=== PATIENT | female | born 1985 | race Caucasian/White ===

== ENCOUNTER 2017-03-14 00:46 | Emergency (ER) | payer OTHER ==
--- NOTE | ~2017-03-14 | CT4 ---
[facility] A Service [facility] RADIOLOGY TEXT RESULTS PATIENT: HEATHER FOSS LOCATION: SED : 85 UNIT #: [id number] AGE: [address]: Beatrice Uriostegui MD SEX: F ORDER DR: [id number] [address] [address] [id number] E MR#: [id number] Acc #: [id number] NAME: HEATHER FOSS. : 1985 SEX: F STUDY DATE/TIME: 03/14/2017 2:49 UNIT: SED ROOM: STUDY DESCRIPTION: CT Abd and Pelv Wo Cont Attending Physician: Beatrice Uriostegui M.D. Ordering Physician: Beatrice Uriostegui M.D. MEDICAL IMAGING REPORT This report is preliminary unless electronic signature is present. EXAM CT abdomen and pelvis, without contrast HISTORY Fall from standing position at [facility]; now has lower back pain. TECHNIQUE Axial 5-mm images were obtained of the abdomen and pelvis without IV or oral contrast. This CT exam was performed with one or more of the following radiation dose reduction techniques: automatic exposure control, adjustment of mA and/or kV according to patient size, and iterative reconstruction. FINDINGS The lung bases are clear. The liver, spleen, pancreas, adrenal glands, and kidneys are normal. The gallbladder has been removed. The aorta is normal in size. There is no adenopathy. The bowel is normal. The uterus has been removed. The ovaries are normal. There are no fractures present. IMPRESSION 1. No bony fractures are identified. 2. Previous cholecystectomy. 3. Previous hysterectomy. 4. Otherwise, normal. Dictated by... Andres Ag M.D. [facility] A Service [facility] RADIOLOGY TEXT RESULTS PATIENT: HEATHER FOSS LOCATION: SED : 85 UNIT #: [id number] AGE: [address]: Beatrice Uriostegui MD SEX: F ORDER DR: THIS IS AN ELECTRONICALLY VERIFIED REPORT Andres Ag M.D. at 03/14/2017 9:09 PM Gayathri TD: 03/14/2017 13:43 JOB #: [id number] MEDICAL IMAGING REPORT Page 1 of 1
--- NOTE | ~2017-03-14 | CR172 ---
[facility]. [facility] A Service of [facility] RADIOLOGY TEXT RESULTS PATIENT: HEATHER FOSS LOCATION: SED : 85 UNIT #: [id number] AGE: [address]: Beatrice Uriostegui MD SEX: F ORDER DR: [id number] [address] [address] [id number] E MR#: [id number] Acc #: [id number] NAME: HEATHER FOSS. : 1985 SEX: F STUDY DATE/TIME: 03/14/2017 2:51 UNIT: SED ROOM: STUDY DESCRIPTION: CR Knee 3 Views Lt Attending Physician: Beatrice Uriostegui M.D. Ordering Physician: Beatrice Uriostegui M.D. MEDICAL IMAGING REPORT This report is preliminary unless electronic signature is present. EXAM Left knee HISTORY Fell tonight, with left knee pain. FINDINGS AP and lateral projection of the knee shows smooth articular anatomy without indication of fracture or dislocation at the major weight-bearing surface of the knee. There is no indication of radiopaque foreign body about the knee surface or joint effusion. IMPRESSION Normal knee. Dictated by... Andres Ag M.D. THIS IS AN ELECTRONICALLY VERIFIED REPORT Andres Ag M.D. at 03/14/2017 9:09 PM Gayathri TD: 03/14/2017 13:46 JOB #: [id number] MEDICAL IMAGING REPORT Page 1 of 1
[~2017-03-14 00:46] MED LIST: NO MEDICATIONS
[2017-03-14] MEDS ORDERED: ZOLOFT (00:56)
== END 2017-03-14 03:23 | disposition home or self-care (01) ==
LOC: SED 00:46
DX: S39.012A Strain of muscle, fascia and tendon of lower back, initial encounter (principal); S80.02XA Contusion of left knee, initial encounter; Z88.2 Allergy status to sulfonamides; Z98.890 Other specified postprocedural states; W01.0XXA Fall on same level from slipping, tripping and stumbling without subsequent striking against object, initial encounter; Y92.512 Supermarket, store or market as the place of occurrence of the external cause
CPT/HCPCS: 73562; 74176; 96372; 99284; J1885